=== PATIENT | female | born 1970 | race Hispanic/Latino ===

== ENCOUNTER 2020-04-27 23:44 | Inpatient (IN) | payer OTHER ==
[~2020-04-27] VITALS: Ht 154.9 cm; Wt 75.3 kg
[2020-04-28] VITALS (7 sets, daily range): BP systolic 112–140; BP diastolic 64–95
--- NOTE | 2020-04-28 | NUR ---
DR. GAY SPEAKING TO DR. MO AT THIS TIME
[2020-04-28 00:01] LABS: BASOPHILS # (AUTO) 0.1 (0.0-0.1); BASOPHILS % 0.5 % (0.0-1.0); EOSINOPHILS # (AUTO) 0.1 (0.0-0.4); EOSINOPHILS % 0.9 % (0.0-6.0); HEMATOCRIT 26.8 % (34.2-44.1); HEMOGLOBIN 7.4 g/dL (12.0-16.0); LYMPHOCYTES # (AUTO) 3.4 (1.0-3.2); LYMPHOCYTES % 22.6 % (18.0-39.1); MEAN CORPUSCULAR HEMOGLOBIN 21.2 pg (28-32); MEAN CORPUSCULAR HGB CONC 27.6 g/dL (31-35); MEAN CORPUSCULAR VOLUME 76.8 fL (81-99); MONOCYTES # (AUTO) 0.7 (0.2-0.8); MONOCYTES % 4.8 % (4.4-11.3); NEUTROPHILS # (AUTO) 10.7 (2.1-6.9); NEUTROPHILS % 70.7 % (38.7-80.0); PLATELET COUNT 571 x10e3/uL (140-360); RED BLOOD COUNT 3.49 x10e6/uL (3.6-5.1); RED CELL DISTRIBUTION WIDTH 19.2 % (11.7-14.4)
[2020-04-28 00:14] LABS: INR 0.94
[2020-04-28 00:15] LABS: PARTIAL THROMBOPLASTIN TIME 43.4 seconds (23.8-35.5)
[2020-04-28] MEDS ORDERED: ASPIRIN 81 MG CHEW TAB PO ONE ×2 (00:15)
[2020-04-28 00:19] LABS: ALBUMIN 3.7 g/dL (3.5-5.0); ALBUMIN/GLOBULIN RATIO 0.9 (0.8-2.0); ANION GAP 13.6 mmol/L (8-16); CALCIUM 8.6 mg/dL (8.4-10.2); CREATININE, SERUM 1.19 mg/dL (0.57-1.11); POTASSIUM 3.6 mmol/L (3.5-5.1)
--- NOTE | 2020-04-28 00:28 | Emergency Department Note ---
History of Present Illnes History of Present Illness Chief Complaint: Respiratory History of Present Illness This is a 50 year old female Chief Complaint Comment pt c/o shortness of breath and chest pain, started at 1900 after patient smoked a cigarette. She has never had this before. She states she had vocal cord dysfunction many years ago and had to have a tracheostomy which was removed 9 months after placement. She states symptoms started abruptly 1 hour ART CRITIC and started at maximum intensity. She also states she has had some low sternal CP starting at 8PM today which she still has. Historian: Patient, Family Member Arrival Mode: Car Additional Treatment ART CRITIC: None Property Officer Required: No Onset (how long ago): hour(s) (1) Location: Throat Quality: Difficulty breathing Radiation: Reports non-radiation Severity: severe Onset quality: sudden Duration (how long): hour(s) (1) Timing of current episode: constant Progression: unchanged Chronicity: new Context: Denies recent illness Relieving factors: none Exacerbating factors: none Associated symptoms: Reports chest pain Past Medical/Family History Physician Review I have reviewed the patient's past medical and family history. Any updates have been documented here. Past Medical History Recent Fever: No Clinical Suspicion of Infectio: No New/Unexplained Change in Ment: No Review of Systems Review of Systems Constitutional: Reports no symptoms EENTM: Reports no symptoms Cardiovascular: Reports no symptoms Respiratory: Reports as per HPI, Reports dyspnea Gastrointestinal: Reports no symptoms Genitourinary: Reports no symptoms Musculoskeletal: Reports no symptoms Integumentary: Reports no symptoms Neurological: Reports no symptoms Psychological: Reports no symptoms Endocrine: Reports no symptoms Hematological/Lymphatic: Reports no symptoms Physical Exam Related Data Allergies: Coded Allergies: codeine (Verified Allergy, Unknown, 04/28/20) meperidine (Verified Allergy, Unknown, 04/28/20) Triage Vital Signs Vital Signs Date Time Temp Pulse Resp B/P (MAP) Pulse Ox O2 Delivery O2 Flow Rate FiO2 04/27/20 23:50 116 24 142/86 100 Room Air Vital signs reviewed: Yes Physical Exam CONSTITUTIONAL Constitutional: Present well-developed, Present well-nourished HENT HENT: Present normocephalic, Present atraumatic, Present oropharynx clear/moist, Present nose normal HENT L/R: Present left ext ear normal, Present right ext ear normal EYES Eyes: Reports PERRL, Reports conjunctivae normal NECK Neck: Present ROM normal PULMONARY Pulmonary: Present breath sounds normal (Lung sonds normal but upper airway noise noted on expiration, none on inspiraiton), Present respiratory distress; Absent effort normal, Absent rales, Absent rhonchi CARDIOVASCULAR Cardiovascular: Present regular rhythm, Present heart sounds normal, Present capillary refill normal, Present tachycardia GASTROINTESTINAL Abdominal: Present soft, Present nontender, Present bowel sounds normal GENITOURINARY Genitourinary: Present exam deferred SKIN Skin: Present warm, Present dry MUSCULOSKELETAL Musculoskeletal: Present ROM normal NEUROLOGICAL Neurological: Present alert, Present oriented x 3, Present no gross motor or sensory deficits PSYCHOLOGICAL Psychological: Present mood/affect normal, Present judgement normal Results Laboratory Result Diagram: 04/27/20 2640 Laboratory Laboratory Tests Test 04/27/20 23:48 White Blood Count 15.11 x10e3/uL (4.8-10.8) Red Blood Count 3.49 x10e6/uL (3.6-5.1) Hemoglobin 7.4 g/dL (12.0-16.0) Hematocrit 26.8 % (34.2-44.1) Mean Corpuscular Volume 76.8 fL (81-99) Mean Corpuscular Hemoglobin 21.2 pg (28-32) Mean Corpuscular Hemoglobin Concent 27.6 g/dL (31-35) Red Cell Distribution Width 19.2 % (11.7-14.4) Platelet Count 571 x10e3/uL (140-360) Neutrophils (%) (Auto) 70.7 % (38.7-80.0) Lymphocytes (%) (Auto) 22.6 % (18.0-39.1) Monocytes (%) (Auto) 4.8 % (4.4-11.3) Eosinophils (%) (Auto) 0.9 % (0.0-6.0) Basophils (%) (Auto) 0.5 % (0.0-1.0) Neutrophils # (Auto) 10.7 (2.1-6.9) Lymphocytes # (Auto) 3.4 (1.0-3.2) Monocytes # (Auto) 0.7 (0.2-0.8) Eosinophils # (Auto) 0.1 (0.0-0.4) Basophils # (Auto) 0.1 (0.0-0.1) Absolute Immature Granulocyte (auto 0.07 x10e3/uL (0-0.1) Procedures 12 Lead ECG Interpretation ECG Interpretation : ECG: ECG 1 Property Officer: Interpreted by ED physician Date: Apr 28, 2020 Rhythm: sinus tachycardia Rate: tachycardia BPM: 114 QRS axis: normal ST segment elevation: II, III, aVF T waves normal: Yes Clinical Impression: abnormal ECG Critical Care Time Total Critical Care Time (min): 60 Time ED Physician saw patient: 11:50 Critcal care necessary due to: respiratory failure Critcal care time spent by me: develop tx plan w patient/surrogate, interpret cardiac output measures (Bedside echo), evaluation patient response to tx, examination of patient, obtaining hx from patient/surrogate, order/perform tx or interventions, order/review laboratory studies, order/review radiographic studies, pulse oximetry, re-evaluation of patient condition, review of old charts Assessment & Plan Medical Decision Making MDM 50-year-old female with a past medical history significant for vocal cord dysfunction who presents to the emergency department for respiratory distress. Patient states she smoked a cigarette and immediately felt short of breath and feeling like she can't get a deep breath in. Examination shows expiratory upper airway sounds but no inspiratory stridor. Lung exam is limited secondary to her upper airway noise but is largely unremarkable, no wheezes, no rales. Differential includes upper airway obstruction versus anxiety versus ACS versus pulmonary embolism versus pneumonia. Initial EKG shows signs suggestive of inferior elevations but no reciprocal changes. I discussed this with Dr. Rader, second crusher cardiology to does not think that this is an acute NH and will refrain from activating the catheter lab. Cardiopulmonary workup is significant for an elevated white blood cell count, elevated D dimer. Tops, other labs, CT's largely benign, no PE. Patient was discussed with Dr. Heredia who has agreed to admit for shortness of breath and difficulty breathing of unknown etiology. Continues to sat 100% on RA, VSS, WNl except some tachycardia. Albuterol and solumedrol given as well. Reassessment Reassessment time: 00:28 Reassessment Ativan .5mg given with mild relief of symptoms, still tachycardic and tachypneic but saturating 100% Assessment & Plan Final Impression: (1) Difficulty breathing Depart Disposition: ADMITTED Last Vital Signs Date Time Temp Pulse Resp B/P (MAP) Pulse Ox O2 Delivery O2 Flow Rate FiO2 04/28/20 00:11 121 22 142/86 100 Room Air Medications in the ED Aspirin 81 mg PRN ONCE PO ; Start 04/28/20 at 00:00; Stop 04/28/20 at 00:08; Status DC Aspirin 324 mg ONCE ONCE PO Last administered on 04/28/20at 00:05; Admin Dose 324 MG; Start 04/28/20 at 00:15; Stop 04/28/20 at 00:16; Status DC SUSANA GAY MD Apr 28, 2020 00:28
[2020-04-28] MEDS ORDERED: LORAZEPAM INJ 2 MG/ML VIAL IV ONE ×2 (00:45→01:15)
[2020-04-28] MEDS ORDERED: SODIUM CHLORIDE 0.9% 1000ML 1,000 ML IV SCH (01:00)
[2020-04-28 01:06] LABS: CREATINE KINASE MB 1.1 ng/mL (0-5.0)
[2020-04-28] MEDS ORDERED: ALBUTEROL SULFATE HFA 8GM INHALATION AEROSOL INH PRN (01:15)
[2020-04-28] MEDS ORDERED: METHYLPREDNISOLONE SOD SUCC 125 MG/2ML VIAL IV ONE (01:15)
--- NOTE | 2020-04-28 01:29 | Diagnostic Imaging Report ---
EXAMINATION: CHEST SINGLE (PORTABLE) INDICATION: ^Y ^SoB ^[id number] ^0030 COMPARISON: None FINDINGS: AP view TUBES and LINES: None. LUNGS: Lungs are well inflated. Retrocardiac opacification. PLEURA: No pleural effusion or pneumothorax. HEART AND MEDIASTINUM: The cardiomediastinal silhouette is unremarkable. BONES AND SOFT TISSUES: No acute osseous lesion. Soft tissues are unremarkable. UPPER ABDOMEN: No free air under the diaphragm. IMPRESSION: Retrocardiac opacification. Differentials include atelectasis, pneumonia, or a large hiatal hernia. Signed by: Dr. Chase Sarmiento MD on 04/28/2020 1:26 AM
--- NOTE | 2020-04-28 02:23 | Diagnostic Imaging Report ---
EXAM: CT Chest WITH contrast 04/28/2020 1:38 AM INDICATION: ^Y ^SoB COMPARISON: Same day chest x-ray TECHNIQUE: Chest was scanned utilizing a multidetector helical scanner from the lung apex through the level of the adrenal glands without administration of IV contrast. Coronal and sagittal reformations were obtained. Routine protocol was performed. IV CONTRAST: 100 mL of Isovue-370 COMPLICATIONS: None RADIATION DOSE: Total DLP: 506.05 mGy*cm Estimated effective dose: (DLP x 0.014 x size factor) mSv CTDIvol has been reviewed. It is below the limits set by the Radiation Protocol Committee (RPC). FINDINGS: LINES/ TUBES: None. LUNGS AND AIRWAYS: Evaluation is limited by respiratory motion. The lungs are unremarkable. Airways are normal. PLEURA: The pleural spaces are clear. HEART AND MEDIASTINUM: The thyroid gland is normal. No mediastinal, hilar or axillary lymphadenopathy. The heart is normal in size.. There is no pericardial effusion. UPPER ABDOMEN: Large hiatal hernia. BONES: The visualized bony thorax is within normal limits. SOFT TISSUES: Unremarkable. IMPRESSION: No acute thoracic abnormality. Large hiatal hernia. Signed by: Dr. Chase Sarmiento MD on 04/28/2020 2:20 AM
--- NOTE | 2020-04-28 02:29 | Diagnostic Imaging Report ---
History: Shortness of breath, trouble breathing Comparison studies: None Technique: Axial, coronal and sagittal images from the skull base to the thoracic inlet. Coronal and sagittal images reconstructed from the axial data. Dose modulation, iterative reconstruction, and/or weight based adjustment of the mA/kV was utilized to reduce the radiation dose to as low as reasonably achievable. Intravenous contrast: 100 cc of Isovue-370. Findings: Exam is somewhat limited artifacts related to patient motion. In spite of limitations: Soft tissues: No mass or fluid collection. Upper aerodigestive tract: Evaluation is markedly limited due to motion artifacts. There may be laryngeal edema with mild thickening of the aryepiglottic folds and mild narrowing of the infraglottic airway. No epiglottic edema. No discrete mass. Mild contour irregularity within the cervical trachea at the level of the thyroid gland related to prior tracheostomy. Lymph nodes: Enhancing, nonnecrotic, noncalcified 2.0 cm right suprahyoid jugular chain lymph node may be reactive. Vessels: Patent carotid and vertebral arteries. Patent bilateral internal jugular veins. Glands (thyroid, parotid and submandibular): Normal in size and symmetric. No masses. Orbits: No abnormalities. Paranasal sinuses: Mild mucosal thickening in the bilateral anterior ethmoids. Remaining sinuses are clear. Temporal bones: Clear middle ear cavities and mastoids. Skull base and facial bones: Intact. Dentition: Multiple dental caries with multifocal periodontal disease Cervical spine: Normal disc height. Patent canal and foramina. IMPRESSION: Exam limited by artifacts related to patient motion. 1. Probable nonspecific laryngeal edema with mild infraglottic narrowing. 2. Sequela of prior tracheostomy without significant tracheal stenosis. 3. Nonspecific reactive mildly prominent right suprahyoid jugular chain lymph node. Signed by: Dr. Romie Sidhu M.D. on 04/28/2020 2:26 AM
[2020-04-28] MEDS ORDERED: HALOPERIDOL LACTATE 5 MG/ML VIAL IV ONE (02:30)
[2020-04-28] MEDS ORDERED: PANTOPRAZOLE 40 MG 10ML VIAL IV STA (02:35)
[2020-04-28 02:37] LABS: AMPHETAMINES SCREEN,URINE NEGATIVE (NEGATIVE); BENZODIAZEPINES SCREEN,URINE POSITIVE (NEGATIVE); PHENCYCLIDINE SCREEN,URINE NEGATIVE (NEGATIVE)
[2020-04-28 02:38] LABS: CLARITY,URINE CLEAR (CLEAR); COLOR,URINE YELLOW (YELLOW); KETONES,URINE NEGATIVE (NEGATIVE); LEUKOCYTE ESTERASE ,URINE NEGATIVE (NEGATIVE); NITRITE,URINE NEGATIVE (NEGATIVE); PROTEIN,URINE DIPSTICK TRACE (NEGATIVE); URINE UROBILINOGEN 0.2 mg/dL (0.2 - 1)
[2020-04-28 02:39] LABS: BACTERIA,URINE MODERATE /HPF; BILIRUBIN,URINE NEGATIVE (NEGATIVE); EPITHELIAL CELLS,URINE FEW /LPF; WBC,URINE (MAN) 0-5 /HPF (0-5)
--- NOTE | 2020-04-28 02:58 | NUR ---
H&P cc: sob and wheezing HPI: 50yoF, no PCP, with hx respiratory failure needing tracheostomy placement in 2012 s/p removal, pt states that she was intubated at that time due to vocal cord dysfunction, not PNA. Now pt developed acute SOB and wheezing; Pt has used cocaine in past, but states has been drug free for 2 years. ABG shows hypoxemia and hypercapnea. PMH: GERD, substance abuse with cocaine (quit 2011), acute resp failure s/p tracheostomy s/p removal in 2011, cigarette use/nicotine dependence, SLE PShx: tracheostomy s/p removal, tubal Allergies; see emr Fh/SH; single; hx cocaine use quit 2011, current smoker 1/4ppd Meds; see MAR ROS; no f/c/s/N/V/D/ROBERTS/cp/skin rash/confusion/focal limb weakness/vision changes v/s revd PE anxious appearing; upper airway wheezing anicteric ns1s2 reduced bs soft ntnd; longitudinal lower abdominal scar skin dry flat affect; anxious a&ox3; yu labs/meds revd A/P: 50yoF Acute Hypoxemic Hypercapenic resp failure- O2 support Laryngeal edema- ENT eval; add steroids q8 Panic disorder- rec'd BZD and geodon; add xanax scheduled q8 Vocal cord dysfunction- history;' O2 support; may need ENT to eval; does have upper airway wheezing GERD- IV ppi Hiatal hernia- monitor; f/u outpt Sinus tachycardia- EKG no ST-T changes RAMONA- rec'd fluids ;f/u repeat labs SLE- f/u outpt Prop: scd; ppi Dispo: monitor closely; NERY WYMAN MD, PHD.
[2020-04-28] MEDS ORDERED: ONDANSETRON HCL INJ 2MG/ML 2ML 2 MG/ML VIAL IV PRN (03:00)
[2020-04-28] MEDS ORDERED: ZOLPIDEM TARTRATE 5 MG TAB PO PRN (03:00)
[2020-04-28] MEDS ORDERED: DOCUSATE SODIUM 100 MG CAP PO PRN (03:00)
[2020-04-28] MEDS ORDERED: ACETAMINOPHEN 325 MG TAB PO PRN (03:00)
--- NOTE | 2020-04-28 03:01 | NUR ---
H&P- ADDENDUM (obesity and anemia) cc: sob and wheezing HPI: 50yoF, no PCP, with hx respiratory failure needing tracheostomy placement in 2011 s/p removal, pt states that she was intubated at that time due to vocal cord dysfunction, not PNA. Now pt developed acute SOB and wheezing; Pt has used cocaine in past, but states has been drug free for 2 years. ABG shows hypoxemia and hypercapnea. PMH: GERD, substance abuse with cocaine (quit 2011), acute resp failure s/p tracheostomy s/p removal in 2011, cigarette use/nicotine dependence, SLE PShx: tracheostomy s/p removal, tubal Allergies; see emr Fh/SH; single; hx cocaine use quit 2011, current smoker 1/4ppd Meds; see MAR ROS; no f/c/s/N/V/D/ROBERTS/cp/skin rash/confusion/focal limb weakness/vision changes v/s revd PE anxious appearing; upper airway wheezing anicteric ns1s2 reduced bs soft ntnd; longitudinal lower abdominal scar skin dry flat affect; anxious a&ox3; yu labs/meds revd A/P: 50yoF Acute Hypoxemic Hypercapenic resp failure- O2 support Laryngeal edema- ENT eval; add steroids q8 Panic disorder- rec'd BZD and geodon; add xanax scheduled q8 Vocal cord dysfunction- history;' O2 support; may need ENT to eval; does have upper airway wheezing GERD- IV ppi Hiatal hernia- monitor; f/u outpt Sinus tachycardia- EKG no ST-T changes RAMONA- rec'd fluids ;f/u repeat labs SLE- f/u outpt Microcytic anemia- moderate ;check anemia panel Obesity- hba1c/lipids BMI 34.8- as above Prop: scd; ppi Dispo: monitor closely; NERY WYMAN MD, PHD.
--- OUTSIDE RECORDS SUMMARY | 2020-04-28 03:04 | XMS REPORT | Continuity of Care Document ---
Author Author [facility] t Organization [facility] Address [address] [place] [address] Dr. 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 Allergies, Adverse Reactions, Alerts This patient has no known allergies or adverse reactions. Medications This patient has no known medications. Procedures This patient has no known procedures. Results Test Description Test Time Test Comments Results Result Comments Source CT CHEST W 2020-04-28 02:13:00 [place] [address] Patient Name: DAVIN GARCES MR #: [id number] : 1970 Age/Sex: 50/F Req #: [id number] Adm Physician: Ordered by: Susana Ho MD Report #: [id number] Location: ER Room/Bed: Procedure: [id number] CT/CT CHEST W Exam Date: Exam Time: REPORT STATUS: Signed EXAM: CT Chest WITH contrast 04/28/2020 1:38 AM INDICATION: Y SoB COMPARISON: Same day chest x-ray TECHNIQUE: Chest was scanned utilizing a multidetector helical scanner from the lung apex through the level of the adrenal glands without administration of IV contrast. Coronal and sagittal reformations were obtained. Routine protocol was performed. IV CONTRAST: 100 mL of Isovue-370 COMPLICATIONS: None RADIATION DOSE: Total DLP: 506.05 mGy*cm Estimated effective dose: (DLP x 0.014 x size factor) mSv CTDIvol has been reviewed. It is below the limits set by the Radiation Protocol Committee (RPC). FINDINGS: LINES/ TUBES: None. LUNGS AND AIRWAYS: Evaluation is limited by respiratory motion. The lungs are unremarkable. Airways are normal. PLEURA: The pleural spaces are clear. HEART AND MEDIASTINUM: The thyroid gland is normal. No mediastinal, hilar or axillary lymphadenopathy. The heart is normal in size.. There is no pericardial effusion. UPPER ABDOMEN: Large hiatal hernia. BONES: The visualized bony thorax is within normal limits. SOFT TISSUES: Unremarkable. IMPRESSION: No acute thoracic abnormality. Large hiatal hernia. Signed by: Dr. Chase De La Fuente MD on 04/28/2020 2:20 AM Dictated By: CHASE DE LA FUENTE MD 9 Transcribed By: JUANITO on 04/28/20219 COPY TO: SUSANA HO MD CT SOFT TISSUE NECK W 2020-04-28 02:04:00 [place] [address] Patient Name: DAVIN GARCES MR #: [id number] : 1970 Age/Sex: 50/F Req #: [id number] Adm Physician: Ordered by: Susana Ho MD Report #: [id number] Location: ER Room/Bed: Procedure: [id number] CT/CT SOFT TISSUE NECK W Exam Date: Exam Time: REPORT STATUS: Signed History: Shortness of breath, trouble breathing Comparison studies: None Technique: Axial, coronal and sagittal images from the skull base to the thoracic inlet. Coronal and sagittal images reconstructed from the axial data. Dose modulation, iterative reconstruction, and/or weight based adjustment of the mA/kV was utilized to reduce the radiation dose to as low as reasonably achievable. Intravenous contrast: 100 cc of Isovue-370. Findings: Exam is somewhat limited artifacts related to patient motion. In spite of limitations: Soft tissues: No mass or fluid collection. Upper aerodigestive tract: Evaluation is markedly limited due to motion artifacts. There may be laryngeal edema with mild thickening of the aryepiglottic folds and mild narrowing of the infraglottic airway. No epiglottic edema. No discrete mass. Mild contour irregularity within the cervical trachea at the level of the thyroid gland related to prior tracheostomy. Lymph nodes: Enhancing, nonnecrotic, noncalcified 2.0 cm right suprahyoid jugular chain lymph node may be reactive. Vessels: Patent carotid and vertebral arteries. Patent bilateral internal jugular veins. Glands (thyroid, parotid and submandibular): Normal in size and symmetric. No masses. Orbits: No abnormalities. Paranasal sinuses: Mild mucosal thickening in the bilateral anterior ethmoids. Remaining sinuses are clear. Temporal bones: Clear middle ear cavities and mastoids. Skull base and facial bones: Intact. Dentition: Multiple dental caries with multifocal periodontal disease Cervical spine: Normal disc height. Patent canal and foramina. IMPRESSION: Exam limited by artifacts related to patient motion. 1. Probable nonspecific laryngeal edema with mild infraglottic narrowing. 2. Sequela of prior tracheostomy without significant tracheal stenosis. 3. Nonspecific reactive mildly prominent right suprahyoid jugular chain lymph node. Signed by: Dr. Astrid Sidhu M.D. on 04/28/2020 2:26 AM Dictated By: ASTRID SIDHU MD 5 Transcribed By: JUANITO on 04/28/20225 COPY TO: SUSANA HO MD CHEST SINGLE (PORTABLE) 2020-04-28 01:23:00 [place] [address] Patient Name: DAVIN GARCES MR #: [id number] : 1970 Age/Sex: 50/F Req #: [id number] [facility] Physician: Ordered by: Susana Ho MD Report #: [id number] Location: ER Room/Bed: Procedure: [id number] DX/CHEST SINGLE (PORTABLE) Exam Date: 04/28/20 Exam Time: 29 REPORT STATUS: Signed EXAMINATION: CHEST SINGLE (PORTABLE) INDICATION: Y SoB [id number] COMPARISON: None FINDINGS: AP view TUBES and LINES: None. LUNGS: Lungs are well inflated. Retrocardiac opacification. PLEURA: No pleural effusion or pneumothorax. HEART AND MEDIASTINUM: The cardiomediastinal silhouette is unremarkable. BONES AND SOFT TISSUES: No acute osseous lesion. Soft tissues are unremarkable. UPPER ABDOMEN: No free air under the diaphragm. IMPRESSION: Retrocardiac opacification. Differentials include atelectasis, pneumonia, or a large hiatal hernia. Signed by: Dr. Chase De La Fuente MD on 04/28/2020 1:26 AM Dictated By: CHASE DE LA FUENTE MD 5 Transcribed By: JUANITO on 04/28/20125 COPY TO: SUSANA HO MD
[2020-04-28 05:22] LABS: CHOL/HDL RATIO 2.6 (3.0-3.6)
[2020-04-28] MEDS: MORPHINE SULFATE INJ 4 MG/ML INJ 1ML IV PRN ×3 (06:55→15:30)
[2020-04-28] MEDS: METHYLPREDNISOLONE SOD SUCC 40 MG/ML VIAL 1ML IV SCH ×3 (06:55→21:38)
[2020-04-28] MEDS: GUAIFENESIN/DEXTROMETHORPHAN LIQD 5 ML UDC NG SCH ×3 (06:55→21:38)
[2020-04-28] MEDS: BENZONATATE 100 MG CAP PO SCH ×3 (10:09→20:37)
[2020-04-28] MEDS: ALPRAZOLAM 0.5 MG TAB PO SCH ×3 (10:09→20:37)
[2020-04-28] MEDS: AZITHROMYCIN 500MG/NS 250 ML 250 ML IV SCH (10:09)
--- NOTE | 2020-04-28 10:57 | NUR ---
Patient having increased upper respiratory stridor. No desaturation on 2L NC. No radiology technologist consulted at this time. RN called MD Heredia and left a message at the office to inform him to call back huy reguarding consult. RN also called MD Romero and left a message at the office informing him that he was consulted. RN will continue to monitor for changes in respiratory status.
[2020-04-28] MEDS: TRAMADOL HCL 50 MG TAB PO SCH (17:28)
--- NOTE | 2020-04-28 23:15 | NUR ---
patient will be transferred to room 289, reports given to Cali PASCUAL. Addendum: 04/28/20 at 2346 by Aime Malcolm RN patient is moving to rm 182 instead. reports given to Cookie PASCUAL.
--- NOTE | 2020-04-28 23:45 | NUR ---
RECEIVED THE PATIENT FROM ICU JOSUÉ WHEEL CHAIR.AAOX3.AMBULATES.TELE #[address]OR[address] THE UNIT.BED LOCKED AND IN LOWEST POSITION. CALL LIGHT WITHIN REACH.INSTRUCTED TO CALL FOR ASSISTANCE NEEDED.
[2020-04-29 00:20] VITALS: BP 131/86
[2020-04-29] MEDS: TRAMADOL HCL 50 MG TAB PO SCH ×5 (00:50→23:16)
[2020-04-29 04:00] VITALS: BP 123/98
--- NOTE | 2020-04-29 05:00 | NUR ---
Blood tayler and sent to the lab.pt tolerated well.
[2020-04-29 05:09] LABS: BASOPHILS % 0.2 % (0.0-1.0); LYMPHOCYTES # (AUTO) 0.8 (1.0-3.2); LYMPHOCYTES % 4.8 % (18.0-39.1); MEAN CORPUSCULAR HEMOGLOBIN 21.2 pg (28-32); MEAN CORPUSCULAR HGB CONC 28.1 g/dL (31-35); MEAN CORPUSCULAR VOLUME 75.4 fL (81-99); MONOCYTES # (AUTO) 0.6 (0.2-0.8); MONOCYTES % 3.7 % (4.4-11.3); NEUTROPHILS # (AUTO) 15.7 (2.1-6.9); NEUTROPHILS % 89.8 % (38.7-80.0); PLATELET COUNT 435 x10e3/uL (140-360); RED BLOOD COUNT 2.97 x10e6/uL (3.6-5.1); RED CELL DISTRIBUTION WIDTH 19.2 % (11.7-14.4)
[2020-04-29 05:24] LABS: HEMATOCRIT 22.4 % (34.2-44.1); HEMOGLOBIN 6.3 g/dL (12.0-16.0)
[2020-04-29] MEDS: METHYLPREDNISOLONE SOD SUCC 40 MG/ML VIAL 1ML IV SCH ×3 (05:37→23:08)
[2020-04-29] MEDS: GUAIFENESIN/DEXTROMETHORPHAN LIQD 5 ML UDC NG SCH ×3 (05:37→23:08)
[2020-04-29 05:41] LABS: BLOOD UREA NITROGEN 18 mg/dL (7-26); BUN/CREATININE RATIO 26 (6-25); CALCIUM 8.3 mg/dL (8.4-10.2); CARBON DIOXIDE 23 mmol/L (22-29); CHLORIDE 105 mmol/L (98-107); CREATININE, SERUM 0.68 mg/dL (0.57-1.11); EST GLOMERULAR FILTRATION RATE > 60 ML/MIN (60-); GLUCOSE 125 mg/dL (74-118); SODIUM 136 mmol/L (136-145)
[2020-04-29 05:46] LABS: FERRITIN 12.8 ng/mL (4.63-204.00)
--- NOTE | 2020-04-29 05:57 | NUR ---
LAB REPORT NOTIFIED TO .ORDERED FOR STAT.
--- NOTE | 2020-04-29 06:20 | NUR ---
Blood tayler and sent to the lab for H&H.
[2020-04-29 06:54] LABS: HEMOGLOBIN 6.5 g/dL (12.0-16.0)
--- NOTE | 2020-04-29 07:02 | NUR ---
Report given to oncoming Rn.stable condition
--- NOTE | 2020-04-29 07:52 | NUR ---
Notified Dr Heredia regarding Hgb 6.5, New orders recvd
[2020-04-29 08:00] VITALS: BP 125/70
[2020-04-29 08:31] VITALS: BP 125/70
[2020-04-29] MEDS ORDERED: SODIUM CHLORIDE 0.9% 250ML 250 ML IV ONE (08:35)
[2020-04-29] MEDS: ALPRAZOLAM 0.5 MG TAB PO SCH ×3 (08:44→20:14)
[2020-04-29] MEDS: PANTOPRAZOLE 40 MG 10ML VIAL IV SCH (08:44)
[2020-04-29] MEDS: BENZONATATE 100 MG CAP PO SCH ×3 (08:44→20:14)
[2020-04-29] MEDS: HYDROXYCHLOROQUINE SULFATE 200 MG TAB PO SCH (08:44)
[2020-04-29] MEDS: AZITHROMYCIN 500MG/NS 250 ML 250 ML IV SCH (08:45)
--- NOTE | 2020-04-29 11:15 | NUR ---
RECEIVED REPORT FROM TAYLOR PASCUAL. PATIENT ARRIVED TO THE UNIT @ 1127. PATIENT IN STABLE CONDITION, NO S/S OF DISTRESS NOTED. NO PAIN VOICED. TELEMETRY APPLIED. IV SITE ASYMPTOMATIC AND PATENT, TRANSPARENT DRESSING C/D/I. BED IN LOWEST POSITION AND LOCKED. CALL LIGHT WITHIN REACH.
--- NOTE | 2020-04-29 12:30 | NUR ---
TRANSFUSION STARTED @ 1230. PATIENT HAS AN ORDER TO TRANSFUSION OF 2 UN[address] OF BLOOD. PER DR. Shante WYMAN.
--- NOTE | 2020-04-29 13:59 | NUR ---
IM- progress note O/N see below ROS; no f/c/s/N/V/D/ROBERTS/cp/skin rash/confusion/focal limb weakness/vision changes v/s revd PE anxious appearing; upper airway wheezing anicteric ns1s2 reduced bs soft ntnd; longitudinal lower abdominal scar skin dry flat affect; anxious a&ox3; yu labs/meds revd A/P: 50yoF Acute Hypoxemic Hypercapenic resp failure- O2 support Laryngeal edema- ENT eval; add steroids q8 Panic disorder- rec'd BZD and geodon; add xanax scheduled q8 Vocal cord dysfunction- history;' O2 support; may need ENT to eval; does have upper airway wheezing GERD- IV ppi Hiatal hernia- monitor; f/u outpt Sinus tachycardia- EKG no ST-T changes RAMONA- rec'd fluids ;f/u repeat labs SLE- f/u outpt Microcytic anemia- moderate ;check anemia panel Obesity- hba1c/lipids BMI 34.8- as above Prop: scd; ppi Dispo: monitor closely; 04-29-20 Worsened iron-deficiency anemia-start ferrlecit. f/u stool occult blood. Hb1c 5.0 NERY WYMAN MD, PHD.
[2020-04-29 15:42] VITALS: BP 105/70
[2020-04-29] MEDS ORDERED: SODIUM FERRIC GLUCONATE COMPLX 125 MG in SODIUM CHLORIDE 0.9% 100 ML 100 ML IV SCH ×2 (16:00→19:00)
--- NOTE | 2020-04-29 16:30 | NUR ---
SECOND UNIT OF BLOOD TRANSFUSED STARTED @ 1630.
--- NOTE | 2020-04-29 16:31 | NUR ---
TRANSFUSION OF 1 UNIT COMPLETED @ 1530. NO ADVERSE EFFECTS FROM TRANSFUSION NOTED. NO TEMP. NOTED. VITAL SIGNS STABLE.
--- NOTE | 2020-04-29 18:59 | NUR ---
COMPLETED BEDSIDE SHIFT REPORT AND ROUNDING WITH ONCOMING NIGHT NURSE. PATIENT IN STABLE CONDITION, NO S/S OF DISTRESS NOTED. NO PAIN VOICED. TELEMETRY APPLIED. IV SITE ASYMPTOMATIC AND PATENT, TRANSPARENT DRESSING C/D/I. SECOND UNIT OF BLOOD TRANSFUSING, PATIENT IS ASYMPTOMATIC, VITALS IN STABLE CONDITION, AFEBRILE. BED IN LOWEST POSITION AND LOCKED, SIDE RAILS X 2,NONSKID SOCKS APPLIED. CALL LIGHT WITHIN REACH.
--- NOTE | 2020-04-29 19:00 | NUR ---
RESUME CARE OF PATIENT AOX3, NO DISTRESS NOTED, CURRENTLY RECEIVEING BLOOD TRANSFUSION BAS #2, ALMOST COMPLETED DUE TO END AT 191, VITALS REMAIN STABLE, AFEBRILE, SKIN WARM DRY, PT RESTING COMFORTABLY, CALL LIGHT WITHIN REACH, DENIES PAIN AT THIS TIME
--- NOTE | 2020-04-29 19:15 | NUR ---
BLOOD TRANSFUSION BAG #2 COMPLETED, PT IV INTACT FLUSHES WELL, SMALL AMOUNT OF DRAINAGE NOTED ON DRESSING NO LEAKAGE NOTED, ASYMPTOMATIC S/P BLOOD TRANSFUSION, WILL CONTINUE TO MONITOR
[2020-04-29 20:00] VITALS: BP 130/90
[2020-04-30] VITALS: BP_SYST 128; BP_SYST 130; BP_DIAS 85; BP_DIAS 90
[2020-04-30 00:12] VITALS: BP 130/90
[2020-04-30 04:00] VITALS: BP 122/78
[2020-04-30] MEDS: GUAIFENESIN/DEXTROMETHORPHAN LIQD 5 ML UDC NG SCH (05:09)
[2020-04-30] MEDS: METHYLPREDNISOLONE SOD SUCC 40 MG/ML VIAL 1ML IV SCH (05:09)
[2020-04-30] MEDS: TRAMADOL HCL 50 MG TAB PO SCH ×2 (05:09→11:23)
[2020-04-30 06:01] VITALS: BP 122/78
--- NOTE | 2020-04-30 07:00 | NUR ---
RECEIVED BEDSIDE SHIFT REPORT WITH OFF GOING NIGHT NURSE. PATIENT IN STABLE CONDITION, NO S/S OF DISTRESS NOTED. NO PAIN VOICED. TELEMETRY APPLIED. IV SITE ASYMPTOMATIC AND PATENT, TRANSPARENT DRESSING C/D/I. BED IN LOWEST POSITION AND LOCKED, SIDE RAILS X 2,NONSKID SOCKS APPLIED. CALL LIGHT WITHIN REACH.
[2020-04-30 07:58] LABS: BASOPHILS % 0.2 % (0.0-1.0); HEMATOCRIT 35.8 % (34.2-44.1); HEMOGLOBIN 11.1 g/dL (12.0-16.0); LYMPHOCYTES # (AUTO) 0.5 (1.0-3.2); LYMPHOCYTES % 4.3 % (18.0-39.1); MEAN CORPUSCULAR HEMOGLOBIN 24.7 pg (28-32); MEAN CORPUSCULAR VOLUME 79.6 fL (81-99); MONOCYTES # (AUTO) 0.5 (0.2-0.8); MONOCYTES % 4.1 % (4.4-11.3); NEUTROPHILS # (AUTO) 11.2 (2.1-6.9); NEUTROPHILS % 88.7 % (38.7-80.0); PLATELET COUNT 359 x10e3/uL (140-360); RED CELL DISTRIBUTION WIDTH 19.9 % (11.7-14.4)
[2020-04-30 08:03] VITALS: BP 128/83
[2020-04-30 08:13] LABS: ANION GAP 15.3 mmol/L (8-16); BLOOD UREA NITROGEN 17 mg/dL (7-26); BUN/CREATININE RATIO 23 (6-25); CALCIUM 8.6 mg/dL (8.4-10.2); CARBON DIOXIDE 21 mmol/L (22-29); CHLORIDE 105 mmol/L (98-107); CREATININE, SERUM 0.74 mg/dL (0.57-1.11); EST GLOMERULAR FILTRATION RATE > 60 ML/MIN (60-); GLUCOSE 111 mg/dL (74-118); POTASSIUM 4.3 mmol/L (3.5-5.1); SODIUM 137 mmol/L (136-145)
[2020-04-30] MEDS: BENZONATATE 100 MG CAP PO SCH (09:00)
[2020-04-30] MEDS: AZITHROMYCIN 500MG/NS 250 ML 250 ML IV SCH (09:02)
[2020-04-30] MEDS: PANTOPRAZOLE 40 MG 10ML VIAL IV SCH (09:02)
[2020-04-30] MEDS: ALPRAZOLAM 0.5 MG TAB PO SCH (09:02)
[2020-04-30] MEDS: HYDROXYCHLOROQUINE SULFATE 200 MG TAB PO SCH (09:02)
[2020-04-30 11:26] VITALS: BP 104/69
[2020-04-30] MEDS ORDERED: PREDNISOLO15 MG/5 ML PO (11:48)
[2020-04-30] MEDS ORDERED: PANTOPRAZOLE SO40 MG PO (11:48)
[2020-04-30] MEDS ORDERED: ALPRAZOLAM0.5 MG PO (11:48)
[2020-04-30] MEDS ORDERED: TESSALON PERLE100 MG PO (11:48)
[2020-04-30] MEDS ORDERED: ZOFRAN4 MG PO (11:48)
[2020-04-30] MEDS ORDERED: FERROUS SULFAT325 MG PO (11:53)
--- NOTE | 2020-04-30 11:58 | NUR ---
D/C summary Principal dx: Acute Hypoxemic Hypercapenic resp failure- O2 support Laryngeal edema- ENT eval; add steroids q8 Panic disorder- rec'd BZD and geodon; add xanax scheduled q8 Secondary Dx: H/O Vocal cord dysfunction- history;' O2 support; may need ENT to eval; does have upper airway wheezing GERD- IV ppi Hiatal hernia- monitor; f/u outpt Sinus tachycardia- EKG no ST-T changes RAMONA- rec'd fluids ;f/u repeat labs SLE- f/u outpt Microcytic anemia- moderate ;check anemia panel Obesity- hba1c/lipids BMI 34.8- as above Prop: scd; ppi Dispo: monitor closely; 8-20 Worsened iron-deficiency anemia-start ferrlecit. f/u stool occult blood. Hb1c 5.0 8-18 Hb better; d/c home and f/u f/u PCP 2 days; GI 1 week. D/C with steroids, iron and antitussives. stable d/c home d/c>35mins NERY WYMAN MD, PHD.
[2020-04-30 12:02] LABS: BAND NEUTROPHILS % (MANUAL) 1 %; HYPOCHROMASIA MODERATE; LYMPHOCYTES % (MANUAL) 5 % (19-48); MONOCYTES % (MANUAL) 4 % (3.4-9.0); NEUTROPHILS % (MANUAL) 90 % (40-74); NUCLEATED RED BLOOD CELLS 1; PLATELET ESTIMATE ADEQUATE; PLATELET MORPHOLOGY COMMENT NORMAL; POLYCHROMASIA FEW; RBC MORPHOLOGY COMMENT ABNORMAL
[2020-04-30 12:03] LABS: ANISOCYTOSIS SLIGHT; POIKILOCYTOSIS SLIGHT
--- NOTE | 2020-04-30 14:47 | NUR ---
PATIENT DISCHARGED HOME. PATIENT OFF THE UNIT @ 1432 VIA WHEELCHAIR ACCOMPANIED TO THE LOBBY BY PCT. PATIENT IN STABLE CONDITION, NO S/S OF DISTRESS NOTED. NO PAIN VOICED. IV ACCESS REMOVED WITH TIP INTACT. ALL PERSONAL ITEMS TAKEN WITH THE PATIENT. DISCHARGE TEACHING AND INSTRUCTIONS GIVEN TO THE PATIENT. PATIENT VERBALIZED UNDERSTANDING. DISCHARGE PAPERWORK AND PRESCRIPTIONS GIVEN TO THE PATIENT.
== END 2020-04-30 14:33 | disposition home or self-care (01) | DRG 189 ==
LOC: ER 23:50 → ERHOLD 04-28 03:01 → ICU 04-28 06:25 → IMCU 04-28 23:47 → MED/SURG3 04-29 11:29
PROVIDERS: ADMIT Internal Medicine; ATTEND Internal Medicine
PROC: 30233N1 Transfusion of Nonautologous Red Blood Cells into Peripheral Vein, Percutaneous Approach (ICD-10-PCS; principal; 2020-04-29)
DX: J96.02 Acute respiratory failure with hypercapnia (principal); N17.9 Acute kidney failure, unspecified; J96.01 Acute respiratory failure with hypoxia; F41.0 Panic disorder [episodic paroxysmal anxiety]; K44.9 Diaphragmatic hernia without obstruction or gangrene; M32.9 Systemic lupus erythematosus, unspecified; K21.9 Gastro-esophageal reflux disease without esophagitis; I49.8 Other specified cardiac arrhythmias; F14.11 Cocaine abuse, in remission; D53.9 Nutritional anemia, unspecified; E66.9 Obesity, unspecified; Z68.34 Body mass index [BMI] 34.0-34.9, adult; F17.210 Nicotine dependence, cigarettes, uncomplicated; Z11.59 Encounter for screening for other viral diseases; J38.3 Other diseases of vocal cords; D50.9 Iron deficiency anemia, unspecified
CPT/HCPCS: 36415; 70491; 71045; 71260; 80048; 80053; 80061; 80307; 81001; 82550; 82553; 82728; 82805; 83036; 83540; 83880; 84466; 84484; 85014; 85018; 85025; 85379; 85610; 85730; 86850; 86900; 86920; 93005; 99285; J2916; P9016; U0002

== ENCOUNTER 2021-01-01 14:10 | Observation (INO) | payer OTHER ==
[~2021-01-01] VITALS: Ht 154.9 cm; Wt 89.8 kg
[~2021-01-01 14:10] MED LIST: ALPRAZOLAM0.5 MG PO; FERROUS SULFAT325 MG PO; PANTOPRAZOLE SO40 MG PO; PREDNISOLO15 MG/5 ML PO; TESSALON PERLE100 MG PO; ZOFRAN4 MG PO
[2021-01-01] MEDS ORDERED: PANTOPRAZOLE 40 MG 10ML VIAL IV STA (14:46)
[2021-01-01] MEDS ORDERED: SODIUM CHLORIDE 0.9% 1000ML 1,000 ML IV STA (14:46)
[2021-01-01 15:34] LABS: ALANINE AMINOTRANSFERASE 12 IU/L (0-55); ALBUMIN 3.8 g/dL (3.5-5.0); ALBUMIN/GLOBULIN RATIO 0.9 (0.8-2.0); ALKALINE PHOSPHATASE 79 IU/L (40-150); ANION GAP 14.4 mmol/L (8-16); BLOOD UREA NITROGEN 19 mg/dL (7-26); BUN/CREATININE RATIO 26 (6-25); CALCIUM 9.1 mg/dL (8.4-10.2); CARBON DIOXIDE 23 mmol/L (22-29); CHLORIDE 106 mmol/L (98-107); CREATININE, SERUM 0.74 mg/dL (0.57-1.11); EST GLOMERULAR FILTRATION RATE > 60 ML/MIN (60-); GLUCOSE 102 mg/dL (74-118); POTASSIUM 3.4 mmol/L (3.5-5.1); SODIUM 140 mmol/L (136-145)
[2021-01-01 15:46] LABS: RED BLOOD COUNT 3.24 x10e6/uL (3.6-5.1)
[2021-01-01 15:47] LABS: HEMATOCRIT 23.4 % (34.2-44.1); LYMPHOCYTES % 23.6 % (18.0-39.1); MEAN CORPUSCULAR HEMOGLOBIN 19.8 pg (28-32); MEAN CORPUSCULAR HGB CONC 27.4 g/dL (31-35); MEAN CORPUSCULAR VOLUME 72.2 fL (81-99); NEUTROPHILS % 65.9 % (38.7-80.0); PLATELET COUNT 315 x10e3/uL (140-360); RED CELL DISTRIBUTION WIDTH 20.1 % (11.7-14.4)
[2021-01-01 15:48] LABS: BASOPHILS % 0.6 % (0.0-1.0); EOSINOPHILS % 0.6 % (0.0-6.0); MONOCYTES % 8.9 % (4.4-11.3)
[2021-01-01 15:49] LABS: HEMOGLOBIN 6.4 g/dL (12.0-16.0)
[2021-01-01 15:54] LABS: THYROID STIMULATING HORMONE 1.913 uIU/mL (0.350-4.940)
[2021-01-01] MEDS ORDERED: SODIUM CHLORIDE 0.9% 250ML 250 ML IV ONE (16:00)
[2021-01-01] MEDS ORDERED: ACETAMINOPHEN 325 MG TAB PO ONE (16:30)
[2021-01-01] MEDS ORDERED: FAMOTIDINE 20 MG/2 ML VIAL IV ONE (16:30)
[2021-01-01] MEDS ORDERED: DEXAMETHASONE SOD PHOS 10 MG/1 ML VIAL IV ONE (16:30)
[2021-01-01] MEDS ORDERED: DIPHENHYDRAMINE HCL INJ 50 MG/ML VIAL IV ONE (16:30)
[2021-01-01] MEDS ORDERED: POTASSIUM CHLORIDE 20 MEQ TAB CR PO STA (17:21)
[2021-01-01 17:26] LABS: INR 0.9; PROTHROMBIN TIME 12.7 seconds (11.9-14.5)
[2021-01-01 17:27] LABS: PARTIAL THROMBOPLASTIN TIME 30.3 seconds (23.8-35.5)
[2021-01-01] MEDS ORDERED: ONDANSETRON HCL INJ 2MG/ML 2ML 2 MG/ML VIAL IV PRN (17:30)
[2021-01-01] MEDS ORDERED: SODIUM CHLORIDE 0.9% 1000ML 1,000 ML IV ONE (17:30)
[2021-01-01] MEDS ORDERED: GABAPENTIN 300 MG CAP ONE (18:23)
[2021-01-01] MEDS ORDERED: FOLIC ACID0.8 MG (18:24)
[2021-01-01] MEDS ORDERED: NEURONTIN300 MG PO (18:24)
[2021-01-01] MEDS ORDERED: SULFADIAZINE500 MG PO (18:24)
[2021-01-01] MEDS ORDERED: METHOTREXA25 MG/1 ML SC (18:24)
[2021-01-01] MEDS ORDERED: PROTONIX20 MG PO (18:24)
[2021-01-01] MEDS ORDERED: PREDNISONE5 G1 (18:24)
[2021-01-01] MEDS ORDERED: HYDROXYCHLOROQ200 MG PO (18:24)
[2021-01-01] MEDS ORDERED: ALENDRONATE SOD70 MG (18:24)
[2021-01-01] MEDS ORDERED: ULTRAM50 MG PO (18:24)
[2021-01-01] MEDS ORDERED: ORENCIA125 MG/1 M (18:24)
[2021-01-01] MEDS: GABAPENTIN 300 MG CAP PO SCH ×2 (18:25→23:14)
[2021-01-01] MEDS ORDERED: FUROSEMIDE INJ 10 MG/ML 2 ML VIAL IV ONE ×2 (18:30→23:30)
[2021-01-01 18:35] LABS: FERRITIN 3.66 ng/mL (4.63-204.00)
[2021-01-01 19:50] VITALS: BP 124/72
[2021-01-01 20:00] VITALS: BP 124/72
[2021-01-01] MEDS ORDERED: SODIUM CHLORIDE 0.9% 1000ML 1,000 ML ONE (23:54)
[2021-01-02] MEDS ORDERED: SODIUM CHLORIDE 0.9% 250ML 250 ML ONE (02:05)
[2021-01-02] MEDS ORDERED: FUROSEMIDE INJ 10 MG/ML 2 ML VIAL IV ONE (05:30)
[2021-01-02] MEDS ORDERED: ASPIRIN CHEW81 MG PO (05:52)
[2021-01-02 07:55] LABS: BASOPHILS % 0.3 % (0.0-1.0); HEMOGLOBIN 9.5 g/dL (12.0-16.0); LYMPHOCYTES # (AUTO) 1.1 (1.0-3.2); LYMPHOCYTES % 15.8 % (18.0-39.1); MEAN CORPUSCULAR HEMOGLOBIN 22.7 pg (28-32); MEAN CORPUSCULAR HGB CONC 29.7 g/dL (31-35); MEAN CORPUSCULAR VOLUME 76.4 fL (81-99); MONOCYTES # (AUTO) 0.6 (0.2-0.8); MONOCYTES % 7.9 % (4.4-11.3); NEUTROPHILS # (AUTO) 5.4 (2.1-6.9); NEUTROPHILS % 75.7 % (38.7-80.0); PLATELET COUNT 352 x10e3/uL (140-360); RED BLOOD COUNT 4.19 x10e6/uL (3.6-5.1); RED CELL DISTRIBUTION WIDTH 20.6 % (11.7-14.4)
[2021-01-02 08:00] VITALS: BP 134/81
[2021-01-02 08:35] LABS: ALANINE AMINOTRANSFERASE 17 IU/L (0-55); ALBUMIN 3.8 g/dL (3.5-5.0); ALBUMIN/GLOBULIN RATIO 0.9 (0.8-2.0); ALKALINE PHOSPHATASE 87 IU/L (40-150); ANION GAP 15.6 mmol/L (8-16); BLOOD UREA NITROGEN 18 mg/dL (7-26); BUN/CREATININE RATIO 24 (6-25); CALCIUM 9.1 mg/dL (8.4-10.2); CARBON DIOXIDE 23 mmol/L (22-29); CHLORIDE 105 mmol/L (98-107); CREATININE, SERUM 0.75 mg/dL (0.57-1.11); EST GLOMERULAR FILTRATION RATE > 60 ML/MIN (60-); GLUCOSE 113 mg/dL (74-118); POTASSIUM 3.6 mmol/L (3.5-5.1); SODIUM 140 mmol/L (136-145)
[2021-01-02] MEDS: GABAPENTIN 300 MG CAP PO SCH (08:41)
[2021-01-02 08:47] VITALS: BP 134/81
[2021-01-02] MEDS ORDERED: PANTOPRAZOLE 40 MG 10ML VIAL IV SCH (09:00)
[2021-01-02 09:54] LABS: ANISOCYTOSIS MODERATE; MICROCYTOSIS MODERATE; OVALOCYTES FEW; PLATELET ESTIMATE ADEQUATE; PLATELET MORPHOLOGY COMMENT NORMAL; POLYCHROMASIA FEW; RBC MORPHOLOGY COMMENT ABNORMAL
[2021-01-02 11:46] VITALS: BP 145/86
[2021-01-02] MEDS ORDERED: FERROUS SULFATE 325 MG TAB PO SCH (13:15)
[2021-01-02] MEDS ORDERED: METHOTREXATE SOD 50 MG/2 ML SC SCH (13:15)
[2021-01-02] MEDS ORDERED: LANSOPRAZOLE30 MG PO (13:19)
[2021-01-02] MEDS ORDERED: FERROUS SULFAT325 MG PO (13:19)
[2021-01-02 15:44] VITALS: BP 132/82
[2021-01-02] MEDS ORDERED: HYDROXYCHLOROQUINE SULFATE 200 MG TAB PO SCH (17:00)
[2021-01-02] MEDS ORDERED: GABAPENTIN 300 MG CAP PO SCH (18:00)
[2021-01-03] MEDS ORDERED: ASPIRIN 81 MG CHEW TAB PO SCH (09:00)
[2021-01-03] MEDS ORDERED: PROTONIX20 MG PO (12:55)
== END 2021-01-02 16:05 | disposition home or self-care (01) ==
LOC: ER 15:00 → ERHOLD 16:55 → MED/SURG 21:46
PROVIDERS: ADMIT Internal Medicine; ATTEND Internal Medicine
DX: D50.0 Iron deficiency anemia secondary to blood loss (chronic) (principal); M32.9 Systemic lupus erythematosus, unspecified; M06.9 Rheumatoid arthritis, unspecified; F17.200 Nicotine dependence, unspecified, uncomplicated; Z20.822 Contact with and (suspected) exposure to COVID-19
CPT/HCPCS: 36415 ×2; 71045; 80053 ×2; 82607; 82728; 82746; 83540; 83880; 84443; 84466; 85025 ×2; 85610; 85730; 86850; 86900; 86920; 93005; 99251; 99284; C9113 ×2; G0378 ×2; J1100; J1200; J1940 ×2; J7030; J7050 ×2; P9016 ×2; U0002